=== PATIENT | male | born 1955 | race Caucasian/White ===

== ENCOUNTER 2017-10-21 00:07 | Emergency (ER) | payer OTHER ==
[~2017-10-21] VITALS: Ht 175.3 cm; Wt 81.7 kg
[2017-10-21 00:10] VITALS: BP 106/53
[2017-10-21 00:39] LABS: MCH 13.6 pg (26.0-34.0); MCHC 25.6 g/dL (28.0-37.0); MCV 53.1 fL (80.0-100.0); MPV 8.6 fl. (7.2-11.1); NUCLEATED RBCS 2 /100WBC; PLATELET COUNT* 390 thou/uL (150-400); RBC 2.34 mil/uL (4.50-6.00); RDW-CV 22.8 % (10.5-14.5); WBC 13.3 thou/uL (4.0-11.0)
[2017-10-21 00:46] LABS: HEMATOCRIT 12.4 % (42.0-52.0); HEMOGLOBIN 3.2 gm/dL (14.0-18.0)
[2017-10-21 00:49] LABS: CALCIUM 9.1 mg/dL (8.5-10.1); CREATININE 1.4 mg/dL (0.6-1.3); POTASSIUM 3.9 mmol/L (3.5-5.1)
[2017-10-21 00:53] LABS: INR 1.3; PROTIME 12.8 Seconds (9.20-11.50)
[2017-10-21 00:56] LABS: ALBUMIN 3.9 g/dL (3.4-5.0); TOTAL BILIRUBIN 1.1 mg/dL (<0.1-1.0); TOTAL PROTEIN 7.3 g/dL (6.4-8.2); TROPONIN-I LEVEL 0.34 ng/mL (<0.06)
[2017-10-21 01:47] LABS: ABSOLUTE EOSINOPHILS 0.1 thou/uL (0.0-0.7); ABSOLUTE LYMPHOCYTES 0.3 thou/uL (0.8-5.3); ABSOLUTE MONOCYTES 0.8 thou/uL (0.0-1.2); ABSOLUTE NEUTROPHILS 12.1 thou/uL (1.6-8.1); ANISOCYTOSIS 3+; HYPOCHROMASIA 3+; MICROCYTES 3+; PLATELET ESTIMATE ADEQUATE; POIKILOCYTOSIS 3+; POLYCHROMASIA 1+; TOXIC GRANULATION 1+
[2017-10-21 01:48] LABS: BURR CELLS 1+; OVALOCYTES 2+; TARGET CELLS 2+
[2017-10-21 01:49] LABS: SCHISTOCYTES 2+; TEARDROPS 2+
[2017-10-21 03:24] LABS: URINE BILIRUBIN NEGATIVE (Negative); URINE BLOOD NEGATIVE (Negative); URINE CLARITY CLEAR; URINE COLOR YELLOW; URINE GLUCOSE-RANDOM NEGATIVE (Negative); URINE KETONES TRACE (Negative); URINE LEUKOCYTES-REFLEX NEGATIVE (Negative); URINE NITRITE-REFLEX NEGATIVE (Negative); URINE PROTEIN NEGATIVE (Negative); URINE UROBILINOGEN 0.2 E.U./dl (0.2-1.0)
[2017-10-21 06:41] LABS: HEMATOCRIT 16.2 % (42.0-52.0); HEMOGLOBIN 5.1 gm/dL (14.0-18.0)
[2017-10-21 08:31] VITALS: BP 120/56
--- NOTE | 2017-10-21 09:40 | EKG ---
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
== END 2017-10-21 08:32 | disposition short-term general hospital (02) ==
LOC: M.ERS 00:07 → M.TBA-ER 02:20 → M.ERS 02:20
PROVIDERS: Emergency Medicine
DX: R04.89 Hemorrhage from other sites in respiratory passages (principal); I10 Essential (primary) hypertension